=== PATIENT | male | born 1995 | race Caucasian/White ===

== ENCOUNTER 2017-06-12 13:41 | Emergency (ER) | payer OTHER ==
[2017-06-12 13:50] VITALS: BP 140/80; PULSE 80; TEMP 97.9; BMI 41.7
--- NOTE | 2017-06-12 14:36 | PDOC ---
History of Present Illness - General Chief Complaint: Hematuria Stated Complaint: URINARY PROBLEM/HEMATURIA Time Seen by Provider: 06/12/17 14:22 History Source: Patient - History of Present Illness Timing/Duration: reports: other (this am) Quality: reports: burning Past History - Past Medical History Allergies/Adverse Reactions: Allergies Allergy/AdvReac Type Severity Reaction Status Date / Time shellfish derived Allergy Verified 06/12/17 13:48 Home Medications: Ambulatory Orders NK [No Known Home Medication] 06/12/17 COPD: No Other medical history: vitamin D deficiency, high hemoglobin - Surgical History Appendectomy: Yes - Suicide/Smoking/Psychosocial Hx Smoking History: Current every day smoker Number of Cigarettes Smoked Daily: 3 Information on smoking cessation initiated: Yes 'Breaking Loose' booklet given: 06/12/17 Hx Alcohol Use: No Drug/Substance Use Hx: No Substance Use Type: None Review of Systems - Review of Systems Constitutional: No: Chills, Fever ABD/GI: No: Nausea, Vomiting : Yes: Dysuria, Hematuria *Physical Exam - Vital Signs Last Vital Signs Temp Pulse Resp BP Pulse Ox 97.9 F 80 19 140/80 97 06/12/17 13:45 06/12/17 13:45 06/12/17 13:45 06/12/17 13:45 06/12/17 13:45 - Physical Exam General Appearance: Yes: Appropriately Dressed. No: Apparent Distress HEENT: positive: Normal Voice Respiratory/Chest: negative: Respiratory Distress Gastrointestinal/Abdominal: positive: Soft. negative: Tender Male Genitalia: negative: discharge, testicular tenderness, testicular mass, epididymus tender Musculoskeletal: negative: CVA Tenderness Integumentary: positive: Dry, Warm Neurologic: positive: Fully Oriented, Alert, Normal Mood/Affect Medical Decision Making - Medical Decision Making 06/12/17 14:34 21-year-old male, no significant history here with dysuria. Patient states this a.m. he had 1 episode of severe pain when he urinated and noticed "a lot of blood" in his urine. Denies urethral discharge, testicular pain/swelling, flank pain, nausea, vomiting, fever or chills. No history of kidney stones or STDs. Sexually active with one female partner 5 months with no condom use. Patient well-appearing and stable with unremarkable exam. Will treat for STD empirically as discussed with patient. UA and culture is pending. Unlikely renal colic as no flank pain, n/v 06/12/17 17:06 UA w/ 5 WBCs and no bacteria or nitrite. HIV test negative. Patient status post empirical meds. Will follow-up with culture results 06/12/17 17:07 *DC/Admit/Observation/Transfer Diagnosis at time of Disposition: Dysuria - Discharge Dispostion Disposition: HOME Condition at time of disposition: Good - Referrals - Patient Instructions Additional Instructions: Please call for your test results in 2-3 days at [phone]. Refrain from sexual activity until symptoms are resolved and then follow-up with your PMD for retesting - Post Discharge Activity
[2017-06-12] MEDS ORDERED: AZITHROMYCIN 250 MG TABLET PO ONE (14:37)
[2017-06-12 15:44] LABS: URINE APPEARANCE CLEAR; URINE BILIRUBIN NEGATIVE (NEGATIVE); URINE BLOOD 2+ (NEGATIVE); URINE COLOR YELLOW; URINE GLUCOSE (UA) NEGATIVE (NEGATIVE); URINE KETONE NEGATIVE (NEGATIVE); URINE LEUK ESTERASE TRACE (NEGATIVE); URINE NITRITE NEGATIVE (NEGATIVE); URINE PROTEIN NEGATIVE (NEGATIVE)
[2017-06-12] MEDS ORDERED: AZITHROMYCIN 500 MG TABLET ONE (15:44)
[2017-06-12 16:53] LABS: URINE HYALINE CAST 1 /lpf; URINE MUCUS RARE; URINE RBC 255 /hpf (0-3); URINE WBC 5 /hpf (3-5)
[2017-06-12 16:59] LABS: HIV 1 & 2 AB NEGATIVE; HIV 1 AGp24 NEGATIVE
[2017-06-12 20:33] LABS: URINE LEUK ESTERASE Negative (NEGATIVE)
== END 2017-06-12 17:06 | disposition home or self-care (01) ==
LOC: JER 13:41 → JERFT 13:41
DX: R30.0 Dysuria (principal); Z11.3 Encounter for screening for infections with a predominantly sexual mode of transmission
CPT/HCPCS: 36415; 81003; 81015; 84703; 87086; 87389; 87491; 87591; 99281-25

== ENCOUNTER 2019-03-05 15:38 | Emergency (ER) | payer OTHER | END 2019-03-05 18:35 | disposition home or self-care (01) | LOC: JERFT 15:38 ==